=== PATIENT | female | born 1940 | race Caucasian/White ===

== ENCOUNTER 2016-08-03 15:01 | Inpatient (IN) | payer MEDICARE, OTHER ==
[2016-08-03] MEDS ORDERED: ASPIRIN EC81 MG PO (15:30)
[2016-08-03] MEDS ORDERED: CITRUCEL479 GM PO (15:31)
[2016-08-03] MEDS ORDERED: DICYCLOMINE HCL10 M1 PO (15:31)
[2016-08-03] MEDS ORDERED: NEURONTIN300 M1 PO (15:32)
[2016-08-03] MEDS ORDERED: ZOFRAN8 M1 PO (15:32)
[2016-08-03] MEDS ORDERED: LEXAPRO10 M2 PO (15:32)
[2016-08-03] MEDS ORDERED: PAMELOR25 M1 PO (15:32)
[2016-08-03] MEDS ORDERED: ULTRAM50 M1 PO (15:33)
[2016-08-03] MEDS ORDERED: PROTONIX40 M2 PO (15:33)
[2016-08-03] MEDS ORDERED: TYLOPHEN500 M1 PO (15:33)
[2016-08-03] MEDS ORDERED: ZOFRAN ODT4 MG SL (15:33)
[2016-08-03] MEDS ORDERED: AMBIEN10 M1 PO (15:33)
[2016-08-03] MEDS ORDERED: VESICARE10 M1 PO (15:33)
[2016-08-03 15:59] LABS: BASO % 0.5 % (0-2); BASO ABSOLUTE COUNT 0.1 tho/cmm (0.0-0.2); EOSINOPHIL ABSOLUTE COUNT 0.1 tho/cmm (0.0-0.7); HCT-HEMATOCRIT 43.3 % (34.0-49.0); HGB-HEMOGLOBIN 14.7 gm/dl (12.0-15.5); IMMATURE GRANULOCYTES ABSOLUTE 0.03 tho/cmm (0-0.03); IMMATURE GRANULOCYTES PERCENT 0.3 % (0-0.3); LYMPH ABSOLUTE COUNT 1.7 tho/cmm (0.8-4.5); MCH (MEAN CORPUSCULAR HGB) 29.9 pg (28.0-32.0); MCHC MEAN CORPUSCULAR HGB CONC 33.9 % (32.0-36.0); MEAN PLATELET VOLUME 12.2 cmc (9.4-12.4); MONO % 6.8 % (0-12); MONOCYTE ABSOLUTE COUNT 0.7 tho/cmm (0.0-1.2); NEUTROPHIL ABSOLUTE COUNT 7.9 tho/cmm (1.6-8.0); NEUTROPHIL-AUTOMATED 7.9 tho/cmm (1.6-8.0); NEUTROPHILS % 75.4 % (40-80); PLATELET COUNT 365 tho/cmm (150-450); RED BLOOD COUNT 4.92 mil/cmm (4.00-5.20); RED CELL DISTRIBUTION WIDTH 13.6 % (12.4-16.4); WHITE BLOOD COUNT 10.5 tho/cmm (4.0-10.0)
[2016-08-03 16:14] LABS: ALB/GLOB RATIO 1.1 (0.8-2.0); ALKALINE PHOSPHATASE 72 U/L (33-138); ALT/SGPT 20 U/L (12-78); ANION GAP 14 mmol/L (0-20); AST/SGOT 16 U/L (10-40); BILIRUBIN,TOTAL 0.5 mg/dl (0-1.5); BLOOD UREA NITROGEN 15 mg/dl (6-24); CARBON DIOXIDE-VENOUS 24 mmol/L (22-32); CHLORIDE 104 mmol/l (96-110); CREATININE 1.21 mg/dl (0.50-1.10); GLUCOSE 189 mg/dL (70-110); LIPASE 115 U/L (73-393); POTASSIUM 3.3 mmol/L (3.7-5.1); SODIUM 139 mmol/L (135-145); eGFR VALUE FOR BLACK 50 mL/Min
[2016-08-03] MEDS ORDERED: PYRIDIUM100 M2 PO (16:55)
[2016-08-03] MEDS ORDERED: NITROGLYCERIN0.4 M2 SL (16:56)
[2016-08-03 17:46] LABS: URINE BILIRUBIN NEGATIVE (NEG); URINE BLOOD NEGATIVE (NEG); URINE GLUCOSE (UA) NEGATIVE (NEG); URINE KETONE SMALL (NEG); URINE LEUKOCYTE ESTERASE POSITIVE (NEG); URINE NITRITE NEGATIVE (NEG); URINE PROTEIN NEGATIVE (NEG)
[2016-08-03 17:49] LABS: URINE APPEARANCE CLEAR; URINE COLOR YELLOW
[2016-08-03 17:51] LABS: URINE BACTERIA 2+; URINE EPITHELIAL CELLS RARE /[HPF] (0-10); URINE RBC 0 /[HPF] (0-5)
[2016-08-03 21:08] LABS: MAGNESIUM 1.8 mg/dl (1.8-2.6); PHOSPHOROUS 1.6 mg/dl (2.5-4.9)
[2016-08-04 03:35] LABS: BASO % 0.5 % (0-2); EOS % 2.4 % (0-7); EOSINOPHIL ABSOLUTE COUNT 0.2 tho/cmm (0.0-0.7); HCT-HEMATOCRIT 30.9 % (34.0-49.0); HGB-HEMOGLOBIN 10.2 gm/dl (12.0-15.5); IMMATURE GRANULOCYTES ABSOLUTE 0.01 tho/cmm (0-0.03); IMMATURE GRANULOCYTES PERCENT 0.2 % (0-0.3); LYMPH % 16.9 % (20-45); LYMPH ABSOLUTE COUNT 1.1 tho/cmm (0.8-4.5); MCH (MEAN CORPUSCULAR HGB) 29.2 pg (28.0-32.0); MCV (MEAN CELL VOLUME) 88.5 fl (82.0-96.0); MEAN PLATELET VOLUME 10.8 cmc (9.4-12.4); MONO % 8.4 % (0-12); MONOCYTE ABSOLUTE COUNT 0.6 tho/cmm (0.0-1.2); NEUTROPHIL ABSOLUTE COUNT 4.8 tho/cmm (1.6-8.0); NEUTROPHIL-AUTOMATED 4.8 tho/cmm (1.6-8.0); NEUTROPHILS % 71.6 % (40-80); PLATELET COUNT 200 tho/cmm (150-450); RED BLOOD COUNT 3.49 mil/cmm (4.00-5.20); RED CELL DISTRIBUTION WIDTH 13.7 % (12.4-16.4); WHITE BLOOD COUNT 6.6 tho/cmm (4.0-10.0)
[2016-08-04 03:47] LABS: ANION GAP 11 mmol/L (0-20); BLOOD UREA NITROGEN 11 mg/dl (6-24); CALCIUM 7.5 mg/dl (8.5-10.5); CARBON DIOXIDE-VENOUS 23 mmol/L (22-32); CHLORIDE 111 mmol/l (96-110); POTASSIUM 3.3 mmol/L (3.7-5.1); SODIUM 142 mmol/L (135-145); eGFR VALUE FOR BLACK 83 mL/Min
[2016-08-04 04:17] LABS: ESR-ERYTHROCYTE SED RATE 17 mm/hr (0-30)
[2016-08-04 04:32] LABS: GLUCOSE 85 mg/dL (70-110)
[2016-08-04 04:46] LABS: C-REACTIVE PROTEIN 0.5 mg/dl (0-0.9)
[2016-08-05 05:35] LABS: EOS % 5.8 % (0-7); EOSINOPHIL ABSOLUTE COUNT 0.2 tho/cmm (0.0-0.7); HGB-HEMOGLOBIN 10.2 gm/dl (12.0-15.5); IMMATURE GRANULOCYTES ABSOLUTE 0.02 tho/cmm (0-0.03); IMMATURE GRANULOCYTES PERCENT 0.5 % (0-0.3); LYMPH % 20.7 % (20-45); LYMPH ABSOLUTE COUNT 0.9 tho/cmm (0.8-4.5); MCH (MEAN CORPUSCULAR HGB) 29.1 pg (28.0-32.0); MCHC MEAN CORPUSCULAR HGB CONC 32.9 % (32.0-36.0); MCV (MEAN CELL VOLUME) 88.3 fl (82.0-96.0); MEAN PLATELET VOLUME 11.9 cmc (9.4-12.4); MONO % 13.9 % (0-12); MONOCYTE ABSOLUTE COUNT 0.6 tho/cmm (0.0-1.2); NEUTROPHIL ABSOLUTE COUNT 2.4 tho/cmm (1.6-8.0); NEUTROPHIL-AUTOMATED 2.4 tho/cmm (1.6-8.0); NEUTROPHILS % 58.1 % (40-80); PLATELET COUNT 175 tho/cmm (150-450); RED BLOOD COUNT 3.51 mil/cmm (4.00-5.20); RED CELL DISTRIBUTION WIDTH 13.9 % (12.4-16.4); WHITE BLOOD COUNT 4.2 tho/cmm (4.0-10.0)
[2016-08-05 05:46] LABS: ANION GAP 11 mmol/L (0-20); BLOOD UREA NITROGEN 4 mg/dl (6-24); CALCIUM 7.4 mg/dl (8.5-10.5); CARBON DIOXIDE-VENOUS 22 mmol/L (22-32); CHLORIDE 113 mmol/l (96-110); CREATININE 0.64 mg/dl (0.50-1.10); GLUCOSE 85 mg/dL (70-110); POTASSIUM 3.4 mmol/L (3.7-5.1); SODIUM 143 mmol/L (135-145); eGFR VALUE FOR BLACK >90 mL/Min
[2016-08-18] MEDS ORDERED: CIPRO500 M2 PO (13:58)
[2016-08-19] MEDS ORDERED: NYSTATIN100000 UNI SSW (11:32)
== END 2016-08-05 13:50 | DRG 392 ==
LOC: EDMED 15:01 → EMR2 19:16 → 5WF 20:39
PROVIDERS: Physician Assistant; ADMIT Family Medicine
PROC: 0DJ08ZZ Inspection of Upper Intestinal Tract, Via Natural or Artificial Opening Endoscopic (ICD-10-PCS; principal; 2016-08-04)
DX: R13.10 Dysphagia, unspecified (principal); N17.8 Other acute kidney failure; B37.81 Candidal esophagitis; K57.92 Diverticulitis of intestine, part unspecified, without perforation or abscess without bleeding; N39.0 Urinary tract infection, site not specified; K21.0 Gastro-esophageal reflux disease with esophagitis; K58.9 Irritable bowel syndrome, unspecified; K44.9 Diaphragmatic hernia without obstruction or gangrene; E86.0 Dehydration; Z87.820 Personal history of traumatic brain injury; R32 Unspecified urinary incontinence; B95.1 Streptococcus, group B, as the cause of diseases classified elsewhere; Z79.82 Long term (current) use of aspirin; F41.9 Anxiety disorder, unspecified; F32.9 Major depressive disorder, single episode, unspecified; Z90.89 Acquired absence of other organs; Z91.81 History of falling; Z86.010 Personal history of colon polyps; Z88.0 Allergy status to penicillin; Z88.2 Allergy status to sulfonamides; Z87.891 Personal history of nicotine dependence; D64.9 Anemia, unspecified
CPT/HCPCS: C8929; G0500; G8996-GN-CI; G8997-GN-CI; G8998-GN-CI; J0692; J0744; J1650; J2250; J2405; J3010; J7030; Q9967